=== PATIENT | female | born 1960 | race Caucasian/White ===

== ENCOUNTER 2016-10-21 11:35 | Emergency (ER) | payer BC, OTHER ==
[2016-10-21 13:26] LABS: Hematocrit 45 % (35-47); Hemoglobin 14.7 g/dl (12.0-16.0); Mean Corpuscular HGB Conc 33 g/dl (31-36); Mean Corpuscular Hemoglobin 28 pg (27-31); Mean Corpuscular Volume 84 fL (80-97); Mean Platelet Volume 8 um3 (7.4-10.4); Red Cell Distribution Width 13 % (10.5-15); White Blood Count 4.7 10^3/ul (3.5-10.8)
[2016-10-21 13:39] LABS: Albumin 4.4 g/dL (3.2-5.2); BUN/Creatinine Ratio 22.8 (8-20); Calcium 9.5 mg/dL (8.6-10.3); EGFR African American 96.8 (>60); EGFR Non-African American 75.3 (>60); Globulin 3.1 g/dL (2-4); Magnesium 2.3 mg/dL (1.9-2.7); Potassium 3.7 mmol/L (3.5-5.0); Total Bilirubin 0.5 mg/dL (0.2-1.0); Total Protein 7.5 g/dL (6.4-8.9)
[2016-10-21 14:10] LABS: TSH (Thyroid Stimulating Horm) 0.82 mcIU/mL (0.34-5.60)
[2016-10-21] MEDS ORDERED: Sucralfate TAB* 1 GM PO ONE (15:32)
[2016-10-21] MEDS ORDERED: Ondansetron INJ* 2 MG/ML VIAL IV ONE (15:32)
--- NOTE | 2016-10-21 16:37 | RAD ---
Indication: Right upper quadrant pain. Real-time sonography of the right upper quadrant was performed. The liver measures 16 cm in length. No focal lesions or intrahepatic ductal dilatation is noted. Right lobe hepatic cyst measures 4.9 x 3.6 x 4.3 cm. There is diffuse increase in echogenicity of liver consistent with hepatic steatosis. The gallbladder demonstrates no gallstones, pericholecystic fluid or wall thickening. Common duct measures 2.3 mm. The pancreas head, neck and proximal body demonstrates no mass or pancreatic ductal dilatation. Evaluation of the aorta and inferior vena cava is limited due to overlying gas. The right kidney measures 10.1 x 4.8 x 4.3 cm without hydronephrosis. IMPRESSION: HEPATIC STEATOSIS WITH RIGHT LOBE HEPATIC CYST. NO EVIDENCE OF CHOLELITHIASIS OR BILIARY DUCT DILATATION IS NOTED.
[2016-10-21 16:54] LABS: Urine Bacteria Absent (Absent); Urine Bilirubin Negative (Negative); Urine Glucose Negative (Negative); Urine Nitrite Negative (Negative)
[2016-10-21 19:26] VITALS: BP 148/70
--- NOTE | 2016-10-21 21:55 | ED ---
Sukumar Frederick Alok, scribed for Mauricio Juarez MD on 10/21/16 at 1537 . Dizziness - HPI Summary HPI Summary: 56F presents to the ED for dizziness since waking up this morning. Pt states that what began as nausea and a burning epigastric at 0300 last night which she took ibuprofen and tylenol for progressed into dizziness this morning. Pt states that her dizziness is worsened by turning her head to the right and her abd pain/nausea is worsened by fatty foods. Pt last ate last night at 1900 and had a small, fatty meal. Pt states she is still dizzy currently. PMHx includes h /o diverticulitis. Pt has had a colonoscopy but denies past abd surgeries. Pt normally takes an OTC antacid for her epigastric pain. Pt states she got new glasses one month ago. - History Of Current Complaint Chief Complaint: EDDizziness Stated Complaint: DIZZY, NAUSEOUS, COLD CHILLS Time Seen by Provider: 10/21/16 15:23 Hx Obtained From: Patient Onset/Duration: Still Present Timing: Constant Severity Initially: Moderate Severity Currently: Moderate Character: Dizzy Aggravating Factor(s): Change In Head Position - worsens dizziness, Other - fatty food - worsens nausea/epigastric pain Associated Signs And Symptoms: Positive: Nausea, Other: - epigastric pain - Allergies/Home Medications Allergies/Adverse Reactions: Allergies Allergy/AdvReac Type Severity Reaction Status Date / Time Codeine Allergy Hives Verified 01/04/16 18:03 Pork Allergy Allergy Nausea And Verified 01/04/16 18:03 Vomiting PMH/Surg Hx/FS Hx/Imm Hx Endocrine/Hematology History: Denies: Hx Diabetes Cardiovascular History: Reports: Hx Angina, Hx Hypercholesterolemia, Hx Hypertension Denies: Hx Coronary Artery Disease, Hx Myocardial Infarction, Hx Valvular Heart Disease Respiratory History: Denies: Hx Asthma, Hx Chronic Obstructive Pulmonary Disease (COPD) GI History: Reports: Hx Diverticulosis, Hx Gastroesophageal Reflux Disease Sensory History: Reports: Hx Contacts or Glasses Opthamlomology History: Reports: Hx Contacts or Glasses - Surgical History Surgery Procedure, Year, and Place: Hysterectomy (2004) Infectious Disease History: Denies: Traveled Outside the [place] in Last 30 Days - Family History Known Family History: Positive: Cardiac Disease - brother and father , Hypertension, Diabetes - Social History Occupation: Employed Full-time Lives: With Family Alcohol Use: None Substance Use Type: Reports: None Hx Tobacco Use: No Smoking Status (MU): Never Smoked Tobacco Review of Systems Negative: Fever Positive: Abdominal Pain, Nausea Neurological: Other - Dizziness All Other Systems Reviewed And Are Negative: Yes Physical Exam Triage Information Reviewed: Yes Vital Signs On Initial Exam: Initial Vitals Temp Pulse Resp BP Pulse Ox 98.4 F 83 18 177/89 100 10/21/16 11:41 10/21/16 11:41 10/21/16 11:41 10/21/16 11:41 10/21/16 11:41 Vital Signs Reviewed: Yes Appearance: Positive: Well-Appearing, No Pain Distress Skin: Positive: Warm, Skin Color Reflects Adequate Perfusion, Dry Head/Face: Positive: Normal Head/Face Inspection Eyes: Positive: Normal ENT: Positive: Normal ENT inspection Neck: Positive: Supple, Nontender Respiratory/Lung Sounds: Positive: Clear to Auscultation, Breath Sounds Present Cardiovascular: Positive: RRR Abdomen Description: Positive: Soft, Other: - Epigastric tenderness. No nystagmus. Bowel Sounds: Positive: Present Musculoskeletal: Positive: Normal Neurological: Positive: Normal Psychiatric: Positive: Normal, Affect/Mood Appropriate Diagnostics - Vital Signs Vital Signs Temp Pulse Resp BP Pulse Ox 10/21/16 14:34 97.5 F 57 16 159/74 100 10/21/16 12:33 97.3 F 67 18 172/89 100 10/21/16 11:41 98.4 F 83 18 177/89 100 - Laboratory Lab Results: Lab Results 10/21/16 10/21/16 10/21/16 Range/Units 13:14 13:14 13:14 WBC 4.7 (3.5-10.8) 10^3/ul RBC 5.30 (4.0-5.4) 10^6/ul Hgb 14.7 (12.0-16.0) g/dl Hct 45 (35-47) % MCV 84 (80-97) fL MCH 28 (27-31) pg MCHC 33 (31-36) g/dl RDW 13 (10.5-15) % Plt Count 233 (150-450) 10^3/ul MPV 8 (7.4-10.4) um3 Neut % (Auto) 59.0 (38-83) % Lymph % (Auto) 34.2 (25-47) % [place] % (Auto) 5.9 (1-9) % Eos % (Auto) 0.3 (0-6) % Baso % (Auto) 0.6 (0-2) % Absolute Neuts (auto) 2.8 (1.5-7.7) 10^3/ul Absolute Lymphs (auto) 1.6 (1.0-4.8) 10^3/ul Absolute Monos (auto) 0.3 (0-0.8) 10^3/ul Absolute Eos (auto) 0 (0-0.6) 10^3/ul Absolute Basos (auto) 0 (0-0.2) 10^3/ul Absolute Nucleated RBC 0 10^3/ul Nucleated RBC % 0 Sodium 138 (133-145) mmol/L Potassium 3.7 (3.5-5.0) mmol/L Chloride 105 (101-111) mmol/L Carbon Dioxide 26 (22-32) mmol/L Anion Gap 7 (2-11) mmol/L BUN 18 (6-24) mg/dL Creatinine 0.79 (0.51-0.95) mg/dL Est GFR ( Amer) 96.8 (>60) Est GFR (Non-Af Amer) 75.3 (>60) BUN/Creatinine Ratio 22.8 H (8-20) Glucose 102 H (70-100) mg/dL Lactic Acid 1.3 (0.5-2.0) mmol/L Calcium 9.5 (8.6-10.3) mg/dL Magnesium 2.3 (1.9-2.7) mg/dL Total Bilirubin 0.50 (0.2-1.0) mg/dL AST 17 (13-39) U/L ALT 19 (7-52) U/L Alkaline Phosphatase 67 (34-104) U/L Troponin I 0.00 (<0.04) ng/mL Total Protein 7.5 (6.4-8.9) g/dL Albumin 4.4 (3.2-5.2) g/dL Globulin 3.1 (2-4) g/dL Albumin/Globulin Ratio 1.4 (1-3) TSH 0.82 (0.34-5.60) mcIU/mL Result Diagrams: 10/21/16 13:14 05/18/17 13:14 Lab Statement: Any lab studies that have been ordered have been reviewed, and results considered in the medical decision making process. - EKG 1258 Cardiac Rate: NL - 61 bpm EKG Rhythm: Sinus Rhythm ST Segment: Non-Specific - changes - Additional Comments Diagnostic Additional Comments: Gallbladder US - IMPRESSION: HEPATIC STEATOSIS WITH RIGHT LOBE HEPATIC CYST. NO EVIDENCE OF CHOLELITHIASIS OR BILIARY DUCT DILATATION IS NOTED. Dizzy Course/Dx - Course Course Of Treatment: Gómez Monroy presented with what sounded like two C/O. Lightheadedness and epogastric pain. Her epigastrium was tender and she got very significant relief with sucralfate and zofran (she can't tolerate ppi's secondary to tachycardia). Her W/U was normal and I recommended a short course of sucralfate and F/U. - Diagnoses Provider Diagnoses: Gastritis Discharge - Discharge Plan Condition: Stable Disposition: HOME Prescriptions: Sucralfate TAB* [Carafate*] 1 gm PO QID #40 tab Patient Education Materials: Gastritis (ED) Referrals: No Primary Care Phys,NOPCP [Primary Care Provider] - [facility] [Outside] The documentation as recorded by the Sukumar diaz Alok accurately reflects the service I personally performed and the decisions made by me, Mauricio Juarez MD.
== END 2016-10-21 19:30 | disposition home or self-care (01) ==
LOC: ED 11:35
DX: K29.70 Gastritis, unspecified, without bleeding (principal); R10.13 Epigastric pain; R42 Dizziness and giddiness; R11.0 Nausea
CPT/HCPCS: 36415; 76705; 80053; 81003; 81015; 83605; 83735; 84443; 84484; 85025; 87086; 93005; 96374; 99284; A9270-GY; J2405